=== PATIENT | female | born 1995 | race Caucasian/White ===

== ENCOUNTER 2021-04-27 17:32 | Emergency (ER) | payer BC ==
[~2021-04-27] VITALS: Ht 167.6 cm; Wt 71.7 kg
[2021-04-27 17:37] VITALS: BP 136/90
--- NOTE | 2021-04-27 17:40 | NUR ---
MD Clarke evaluating pt in triage room
--- NOTE | 2021-04-27 17:43 | NUR ---
PT AMBULATED TO BED 7 WITH STEADY GAIT
--- NOTE | 2021-04-27 17:45 | NUR ---
RAD AT BEDSIDE
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
[2021-04-27] MEDS ORDERED: IBUP-2213 PO (18:03)
--- NOTE | 2021-04-27 18:20 | NUR ---
PT PLACED IN LEFT ARM FABIRCATED 4" ORTHO-GLASS ULNUR/GUTTER SPLINT AND WRAPPED WITH 3" KAYLEIGH WRAPS X2. PT ALSO PLACED IN LEFT ARM SLING. [facility] WNL BEFORE AND AFTER. PA AND RN NOTIFIED.
[2021-04-27 18:40] VITALS: BP 136/90
--- NOTE | 2021-04-27 18:40 | NUR ---
Patient discharged with v/s stable. Written and verbal after care instructions about metacarpal fracture given and explained. Patient alert, oriented and verbalized understanding of instructions. Ambulatory with steady gait. All questions addressed prior to discharge. ID band removed. Patient advised to follow up with PMD. Rx of ibuprofen given. Patient educated on indication of medication including possible reaction and side effects. Opportunity to ask questions provided and answered.
== END 2021-04-27 18:40 | disposition home or self-care (01) ==
LOC: MED 17:32
DX: S62.307A Unspecified fracture of fifth metacarpal bone, left hand, initial encounter for closed fracture (principal); Z79.899 Other long term (current) drug therapy; Z98.890 Other specified postprocedural states; W22.01XA Walked into wall, initial encounter; Y93.89 Activity, other specified; Y92.89 Other specified places as the place of occurrence of the external cause; Y99.8 Other external cause status
CPT/HCPCS: 73130; 99283